=== PATIENT | male | born 1950 ===

== ENCOUNTER → 2018-06-06 | Day surgery (SDC) | payer OTHER | END | disposition home or self-care (01) | LOC: ADM 05-30 11:00 → AMB-ENDOS 05:46 | DX: D12.5 Benign neoplasm of sigmoid colon (principal); K64.8 Other hemorrhoids ==

== ENCOUNTER 2018-07-02 10:15 | Inpatient (IN) | payer OTHER ==
[~2018-07-02] VITALS: Ht 180.3 cm; Wt 78.0 kg
[2018-07-02] MEDS ORDERED: METROPOLOL PO (12:59)
[2018-07-02] MEDS ORDERED: ASPIR 8181 MG PO (13:00)
[2018-07-02] MEDS ORDERED: ZANTAC300 MG PO (13:01)
[2018-07-02] MEDS ORDERED: ATORVASTATIN CA40 MG PO (13:01)
[2018-07-06] MEDS ORDERED: TOPROL XL50 M1 PO (08:59)
== END 2018-07-11 12:23 | disposition home or self-care (01) | DRG 330 ==
LOC: SURG 07-06 06:48 → O/R 07-06 06:48 → SURH 07-06 07:00 → SURG 07-06 16:29
PROVIDERS: Colon & Rectal Surgery
PROC: 0DBU4ZZ Excision of Omentum, Percutaneous Endoscopic Approach (ICD-10-PCS; 2018-07-06)
PROC: BW21YZZ Computerized Tomography (CT Scan) of Abdomen and Pelvis using Other Contrast (ICD-10-PCS; 2018-07-06)
PROC: 0DJD8ZZ Inspection of Lower Intestinal Tract, Via Natural or Artificial Opening Endoscopic (ICD-10-PCS; 2018-07-06)
PROC: 0DTN4ZZ Resection of Sigmoid Colon, Percutaneous Endoscopic Approach (ICD-10-PCS; principal; 2018-07-06 07:00)
DX: K57.32 Diverticulitis of large intestine without perforation or abscess without bleeding (principal); J90 Pleural effusion, not elsewhere classified; J98.11 Atelectasis; R50.82 Postprocedural fever; Z86.010 Personal history of colon polyps